=== PATIENT | male | born 1940 | race Caucasian/White ===

== ENCOUNTER 2018-02-10 10:16 | Outpatient (CLI) | payer OTHER ==
[~2018-02-10 10:16] MED LIST: AMIT10TA25 PO; CIPR500T4 PO; DUTA0.5S2 PO; METF500T6 PO; MONT10TA35 PO; OMEP20EC6 PO; PIOG30TA PO; PROM6.2555 PO; SERT25TA PO; TAMS0.4C96 PO; [UNRECOGNIZED DRUG - CODE] PO; [UNRECOGNIZED DRUG - CODE] PO
== END 2018-02-10 20:32 | disposition home or self-care (01) ==
LOC: MUS 10:16
DX: M79.89 Other specified soft tissue disorders (principal); J44.9 Chronic obstructive pulmonary disease, unspecified; E11.9 Type 2 diabetes mellitus without complications; Z79.899 Other long term (current) drug therapy
CPT/HCPCS: 93971; Q0092